=== PATIENT | male | born 1965 | race Two or more races ===

== ENCOUNTER 2018-08-26 10:25 | Observation (INO) | payer BC, MEDICAID ==
[~2018-08-26] VITALS: Ht 170.2 cm; Wt 86.2 kg
[2018-08-26 11:20] LABS: Basophils # (auto) 0.1 uL; Basophils % (auto) 0.7 % (0.0-2.0); Eosinophils # (auto) 0.1 uL; Eosinophils % (auto) 0.5 % (0.0-7.0); Hematocrit 46.8 % (41.0-53.0); Hemoglobin 15.4 g/dL (13.5-17.5); Lymphocytes # (auto) 2.2 uL; Lymphocytes % (auto) 17.2 % (10.0-50.0); Mean Corpuscular Hemoglobin 30.6 pg (28.0-32.0); Mean Corpuscular Volume 92.9 fL (80.0-100.0); Monocytes # (auto) 0.8 uL; Monocytes % (auto) 6.4 % (0.0-12.0); Neutrophils # (auto) 9.4 uL; Neutrophils % (auto) 75.2 % (37.0-80.0); Platelet Count (auto) 215 10^3/uL (140-450); Red Blood Cells 5.04 10^6/uL (4.5-5.90); Red Cell Distribution Width 13.2 % (11.8-14.3); White Blood Cell 12.5 10^3/uL (4.4-10.8)
[2018-08-26 11:43] LABS: Alanine Aminotransferase 72 U/L (16-61); Albumin 4.1 g/dL (3.4-5.0); Alkaline Phosphatase 62 U/L (45-117); Anion Gap 6 (5-15); Aspartate Aminotransferase 43 U/L (15-37); BUN/Creatinine Ratio 8.9; Bilirubin, Total 0.7 mg/dL (0.2-1.0); Blood Alcohol < 3.0 mg/dL (0-5); Blood Urea Nitrogen 9 mg/dL (7-18); Calcium 9.2 mg/dL (8.5-10.1); Carbon Dioxide 27 mmol/L (21-32); Chloride 105 mmol/L (98-107); GFR African American 100 mL/min; GFR Non-African American 82 mL/min; Glucose 115 mg/dL (74-106); Potassium 3.9 mmol/L (3.5-5.1); Sodium 138 mmol/L (136-145); Total Protein 7.7 g/dL (6.4-8.2)
[2018-08-26 12:03] LABS: Alcohol, Urine < 3.0 mg/dL (0-5); Amphetamine Screen, Urine NEGATIVE (NEGATIVE); Barbiturate Scree,Urine NEGATIVE (NEGATIVE); Benzodiazephine Screen, Urine NEGATIVE (NEGATIVE); Cannabinoid Screen, Urine NEGATIVE (NEGATIVE); Cocaine Screen, Urine NEGATIVE (NEGATIVE); Opiate Scree,Urine NEGATIVE (NEGATIVE); Phencyclidine Screen, Urine NEGATIVE (NEGATIVE)
[2018-08-26 12:24] LABS: Salicylate < 1.7 mg/dL (2.8-20.0)
[2018-08-26 12:25] LABS: Acetaminophen < 2.0 ug/mL (10-30)
[2018-08-26] MEDS ORDERED: SODIUM CHLORIDE 0.9% 1,000 ML IVB ONE (12:28)
[2018-08-26] MEDS ORDERED: LORazepam 2MG/ML-1ML VIAL IV ONE (13:00)
[2018-08-26] MEDS ORDERED: cloNIDine HCL 0.1 MG TAB PO ONE (14:00)
[2018-08-26 19:22] VITALS: BP 141/87
== END 2018-08-26 20:30 | disposition home or self-care (01) | DRG 775 ==
LOC: EDBD 10:25 → ER 10:32 → OVERFLOW 10:33 → ER 20:30
PROVIDERS: ADMIT Family Medicine; ATTEND Family Medicine
DX: F10.280 Alcohol dependence with alcohol-induced anxiety disorder (principal); F17.210 Nicotine dependence, cigarettes, uncomplicated; F41.9 Anxiety disorder, unspecified; I10 Essential (primary) hypertension
CPT/HCPCS: 36415; 71045; 80053; 80307; 80320; 80329; 83735; 85025; 93005; 99285; G0378; J2060

== ENCOUNTER 2022-04-15 06:58 | Day surgery (SDC) | payer OTHER ==
[2022-04-12 10:15] LABS: Basophils # (auto) 0.1 10 ^3/uL (0-0.2); Basophils % (auto) 0.6 % (0.0-2.0); Eosinophils # (auto) 0.3 10 ^3/uL (0-0.8); Eosinophils % (auto) 2.5 % (0.0-7.0); Hematocrit 39.5 % (41.0-53.0); Hemoglobin 13.6 g/dL (13.5-17.5); Lymphocytes # (auto) 3.7 10 ^3/uL (0.4-5.4); Lymphocytes % (auto) 36.2 % (10.0-50.0); Mean Corpuscular Hemoglobin 29.5 pg (28.0-32.0); Mean Corpuscular Hgb Conc. 34.3 g/dL (32.0-36.0); Monocytes # (auto) 0.8 10 ^3/uL (0-1.3); Monocytes % (auto) 7.8 % (0.0-12.0); Neutrophils # (auto) 5.4 10 ^3/uL (1.6-8.6); Neutrophils % (auto) 52.9 % (37.0-80.0); Red Blood Cells 4.59 10^6/uL (4.5-5.90); Red Cell Distribution Width 13.4 % (11.8-14.3); White Blood Cell 10.1 10^3/uL (4.4-10.8)
[2022-04-12 10:34] LABS: INR 1.06 (0.9-1.15); Partial Thromboplastin Time 28.8 sec (23.6-33.0)
[2022-04-12 10:37] LABS: Urine Bacteria NONE SEEN /hpf (None Seen); Urine Blood Negative /uL (Negative); Urine Mucus FEW (None Seen); Urine Specific Gravity 1.021 (1.001-1.035); Urine WBC 1 /hpf (0 - 3)
[2022-04-12 10:44] LABS: Albumin 3.7 g/dL (3.4-5.0); Calcium 9.3 mg/dL (8.5-10.1)
[2022-04-12 10:47] LABS: BUN/Creatinine Ratio 17.8; Bilirubin, Total 0.3 mg/dL (0.2-1.0); Total Protein 7.3 g/dL (6.4-8.2)
[~2022-04-15] VITALS: Ht 170.2 cm; Wt 90.7 kg
[~2022-04-15 06:58] MED LIST: ASPI1TAB20 PO; LISI20TA28 PO; QUET50TA PO; ROSU10TA16 PO
[2022-04-15] MEDS ORDERED: ceFAZolin 1GM/50ML 100 ML IV ONE (07:10)
[2022-04-15] MEDS ORDERED: BUPIVACAINE W/ EPINEPH 0.25% INJ 50ML MDV ONE (07:49)
[2022-04-15] MEDS ORDERED: MIDAZOLAM HCL 2MG/2ML 2ml VIAL (1mg/ml) ONE (07:51)
[2022-04-15] MEDS ORDERED: fentaNYL CITRATE 5 ML ONE (07:51)
[2022-04-15] MEDS ORDERED: ONDANSETRON HCL 4 MG/2 ML VIAL ONE (07:51)
[2022-04-15] MEDS ORDERED: LIDOCAINE 2% (LOCAL ANESTH.) PF 5ml SDV ONE (07:51)
[2022-04-15] MEDS ORDERED: PROPOFOL 10 MG/ML 20 ML IV ONE ×2 (07:52→09:02)
[2022-04-15] MEDS ORDERED: ROCURONIUM 10MG/ML 10ML VIAL IV ONE (08:39)
[2022-04-15] MEDS ORDERED: NEOSTIGMINE 1 MG/ML INJ (10mg/10ML VIAL) ONE (08:51)
[2022-04-15] MEDS ORDERED: GLYCOPYRROLATE 0.2 MG/ML 1ML VIAL ONE ×2 (08:51→09:16)
[2022-04-15] MEDS ORDERED: HYDROmorphone HCL 2 MG/ML VL/or syr IV PRN (09:00)
[2022-04-15] MEDS ORDERED: ONDANSETRON HCL 4 MG/2 ML VIAL IV PRN (09:00)
[2022-04-15] MEDS ORDERED: ACE3T PO (09:09)
[2022-04-15] MEDS: HYDROmorphone HCL 2 MG/ML VL/or syr IV PRN ×5 (09:31→10:15)
[2022-04-15 10:25] VITALS: BP 128/83
== END 2022-04-15 10:40 | disposition home or self-care (01) ==
LOC: SUR 06:58
PROVIDERS: ATTEND Surgery
DX: K40.90 Unilateral inguinal hernia, without obstruction or gangrene, not specified as recurrent (principal); I10 Essential (primary) hypertension; F41.9 Anxiety disorder, unspecified; E78.5 Hyperlipidemia, unspecified; Z90.49 Acquired absence of other specified parts of digestive tract; Z98.890 Other specified postprocedural states; Z79.899 Other long term (current) drug therapy; Z88.8 Allergy status to other drugs, medicaments and biological substances; Z88.6 Allergy status to analgesic agent; Z87.891 Personal history of nicotine dependence; Z82.49 Family history of ischemic heart disease and other diseases of the circulatory system; Z84.1 Family history of disorders of kidney and ureter; Z20.822 Contact with and (suspected) exposure to COVID-19
CPT/HCPCS: 36415; 49505; 80053; 81001; 85025; 85610; 85730; 86850; 86900; 86901; J0690; J1170; J2001; J2250; J2405; J2704; J3010; U0003